=== PATIENT | male | born 1980 | race Hispanic/Latino ===

== ENCOUNTER 2017-04-04 11:41 | Emergency (ER) | payer MEDICAID, OTHER ==
[2017-04-04 11:42] VITALS: BMI 28.0
[2017-04-04 13:28] VITALS: TEMP 98.7
[2017-04-04 14:22] LABS: ADD MANUAL DIFF? NO
[2017-04-04 14:24] LABS: BASO # 0.02 K/mm3 (0.0-2.0); BASO % 0.1 % (0.0-3.0); EOS # 0.1 (0.0-0.7); EOS % 0.4 % (1.5-5.0); GRAN # 10.25 (1.4-6.5); GRAN % 75.5 % (50.0-68.0); HEMATOCRIT 42.5 % (42.0-52.0); LYMPH # 2.3 (1.2-3.4); LYMPH % 16.6 % (22.0-35.0); MEAN CELL VOLUME 89.7 fL (80.0-105.0); MEAN CORPUSCULAR HGB CONC 34.6 g/dl (31.0-37.0); MEAN PLATELET VOLUME 9.5 fl (7.0-11.0); MONO % 7.4 % (1.0-6.0); PLATELET COUNT 203 10^3/uL (120.0-450.0); RED CELL DISTRIBUTION WIDTH 12.9 % (11.5-14.5); WHITE BLOOD COUNT 13.6 10^3/ul (4.5-11.0)
[2017-04-04 14:37] LABS: ALB/GLOB RATIO 1.5 (1.1-1.8); ALKALINE PHOSPHATASE 52 U/L (38-133); ALT/SGPT 36 U/L (7-56); AST/SGOT 43 U/L (15-59); BILIRUBIN,TOTAL 0.8 mg/dL (0.2-1.3); BLOOD UREA NITROGEN 20 mg/dL (7-21); CALCIUM 9.1 mg/dL (8.4-10.5); CARBON DIOXIDE 26 mmol/L (21-33); CHLORIDE 106 mmol/L (98-107); GFR AFRICAN-AMERICAN > 60; GLUCOSE,RANDOM 83 mg/dL (70-110); SODIUM 141 mmol/L (132-148); TOTAL PROTEIN 6.6 g/dL (5.8-8.3)
[2017-04-04 14:47] LABS: TROPONIN I < 0.01 ng/mL
--- NOTE | 2017-04-04 15:03 | ED PDOC ---
Arrival/HPI <Ham Macias - Last Filed: 04/04/17 18:39> - General Historian: Patient <Radha Bryan A - Last Filed: 04/04/17 19:11> <Terence Anderson - Last Filed: 04/05/17 01:56> <Jovani Queen - Last Filed: 04/05/17 23:33> <Jeevan Myles - Last Filed: 04/06/17 20:44> - General Chief Complaint: Psychiatric Evaluation Time Seen by Provider: 04/04/17 11:59 - History of Present Illness Narrative History of Present Illness (Text): 04/04/17 15:00 37yo male bib [employer] for psych evaluation. Per [employer] pt was very agitated, loud and violent when they tried to arrest him for shoplifting this morning. PT was very loud, belligerent in ED. He reports that he used "dust". Screaming "I want to kill the officers". Denies any somatic or psychiatric complaint. (Radha Bryan A) Past Medical History - Provider Review Nursing Documentation Reviewed: Yes - Cardiac Hx Cardiac Disorders: No Hx Hypertension: No - Pulmonary Hx Tuberculosis: No - Neurological HX Cerebrovascular Accident: No Hx Seizures: No - HEENT Hx HEENT Disorder: No - Hematological/Oncological Hx Cancer: No - Integumentary Other/Comment: BRUISES ON LEFT FOREARM - Musculoskeletal/Rheumatological Hx Musculoskeletal Disorders: Yes - Genitourinary/Gynecological Hx Sexually Transmitted Diseases: No - Psychiatric Hx Psychophysiologic Disorder: Yes Hx Anxiety: Yes Hx Bipolar Disorder: Yes Hx Depression: Yes Hx Substance Use: Yes (unobtainable) <Radha Bryan A - Last Filed: 04/04/17 19:11> Family/Social History - Physician Review Nursing Documentation Reviewed: Yes Family/Social History: Unknown Family HX Smoking Status: Unknown If Ever Smoked Hx Alcohol Use: Yes (unobtainable) Hx Substance Use: Yes (unobtainable) <Radha Bryan - Last Filed: 04/04/17 19:11> Allergies/Home Meds <Ham Macias - Last Filed: 04/04/17 18:39> <Radha Byran A - Last Filed: 04/04/17 19:11> <Terence Anderson - Last Filed: 04/05/17 01:56> <Jovani Queen - Last Filed: 04/05/17 23:33> <Jeevan Myles - Last Filed: 04/06/17 20:44> Allergies/Adverse Reactions: Allergies No Known Allergies Allergy (Verified 04/04/17 11:53) Review of Systems - Physician Review All systems were reviewed & negative as marked: Yes - Review of Systems Constitutional: Normal Eyes: Normal ENT: Normal Respiratory: Normal Cardiovascular: Normal Gastrointestinal: Normal Genitourinary Male: Normal Musculoskeletal: Normal Skin: Normal Neurological: Normal Endocrine: Normal Hemo/Lymphatic: Normal Psychiatric: Other (Psych evaluation ) <Radha Bryan A - Last Filed: 04/04/17 19:11> Physical Exam Temperature: Afebrile Blood Pressure: Normal Pulse: Regular Respiratory Rate: Normal Appearance: Positive for: Well-Appearing, Non-Toxic, Comfortable Pain Distress: None Mental Status: Positive for: Alert and Oriented X 3 - Systems Exam Head: Present: Atraumatic, Normocephalic Pupils: Present: PERRL Extroacular Muscles: Present: EOMI Conjunctiva: Present: Normal Mouth: Present: Moist Mucous Membranes Neck: Present: Normal Range of Motion Respiratory/Chest: Present: Clear to Auscultation, Good Air Exchange. No: Respiratory Distress, Accessory Muscle Use Cardiovascular: Present: Regular Rate and Rhythm, Normal S1, S2. No: Murmurs Abdomen: Present: Normal Bowel Sounds. No: Tenderness, Distention, Peritoneal Signs Back: Present: Normal Inspection Upper Extremity: Present: Normal Inspection. No: Cyanosis, Edema Lower Extremity: Present: Normal Inspection. No: Edema Neurological: Present: GCS=15, CN II-XII Intact, Speech Normal Skin: Present: Warm, Dry, Normal Color. No: Rashes Psychiatric: Present: Alert, Oriented x 3, Normal Insight, Normal Concentration , Agitated, Other (Belligrent and loud) <Radha Bryan A - Last Filed: 04/04/17 19:11> Medical Decision Making <Ham Macias - Last Filed: 04/04/17 18:39> <RandiHappiness A - Last Filed: 04/04/17 19:11> - Transfer of Care Patient signed out to Dr:: Bernice <Terence Anderson - Last Filed: 04/05/17 01:56> <Jovani Queen - Last Filed: 04/05/17 23:33> <SharJeevan - Last Filed: 04/06/17 20:44> ED Course and Treatment: 04/04/17 14:30 Patient screaming, aggressive, threatening to staff verbally and physically aggressive despite attempts to verbally assess and manage patient he is potential harm to self and others in agitated state, preventing adequate initial screening exam for aggressiveness and agitation. Geodon ordered for sedation. 04/04/17 19:00 CXR and re-evaluation pending. Case to be endorsed to Dr. Queen for follow-up of re-exam and disposition. (Ham Macias) 04/04/17 17:29 PT presented to EDfor stated history. He was restrained physically and medically because he was belligernet, loud and appeared harmful to himself and ED staffs. Lab was reviewed and unremarkable Urine drug tox - PCP and cocaine noted. EKG NSR @71bpm He was medically cleared for psychiatric evaluation He was seen in ED by PES selvin Caraballo who states that pt will be screened by [facility]. 04/04/17 19:12 PT remain hemodynamically stable in ED. Sleeping comfortably in ED. He is pending [facility] screening. Case was endorsed to HILARY Anderson PAC to f/u and dispo. (Radha Bryan) 04/04/17 22:00 -Pt. is here for the psychiatric evaluation due to the homicidal/suicidal ideation, very uncooperative. -Pt. was medically clear by the previous providers. -Case sign out to me by previous JORGE Bryan, pending for the [facility] -Josette Caraballo evaluated the patient, stated that the patient is still under the influence and [facility] will come to screen the patient once he is less agitated. 04/05/17 00:00 -Pt. is sleeping in his room, non-agitated, refused to speak to me or answer any of my questions, pending for the [facility]. 04/05/17 02:00 -Pt. is agitated, cursing, screaming, screen by the [facility] amador, suggest ativan/ haldol, ordered. -Case discussed and sign out to the current ER attending Dr. Queen for evaluation. (Terence Anderson) 04/05/17 06:00 Pt. was evaluated by [facility] screener.Pending [facility] transfer. 04/05/17 07:00 Pt. resting comfortably.Endorsed to .Awaiting bed placement /transfer to [facility]. (Jovani uQeen) 04/05/17 07:00 Case endorsed to me by Dr. Queen, pending placement and transfer to [facility]. (Jeevan Myles) - Lab Interpretations Lab Results: 04/04/17 14:20 04/04/17 14:20 Lab Results 04/04/17 16:15: Urine Opiates Screen Negative, Urine Methadone Screen Negative, Ur Barbiturates Screen Negative, Ur Phencyclidine Scrn Positive H, Ur Amphetamines Screen Negative, U Benzodiazepines Scrn Negative, U Oth Cocaine Metabols Positive H, U Cannabinoids Screen Negative 04/04/17 16:15: Urine Color Yellow, Urine Appearance Clear, Urine pH 6.0, Ur Specific [place] 1.020, Urine Protein Trace H, Urine Glucose (UA) Negative, Urine Ketones Negative, Urine Blood Negative, Urine Nitrate Negative, Urine Bilirubin Negative, Urine Urobilinogen 0.2, Ur Leukocyte Esterase Negative, Urine RBC Negative, Urine WBC 1 - 3, Ur Epithelial Cells None, Amorphous Sediment Few, Urine Bacteria Few, Fine Granular Casts 0 - 2 04/04/17 14:20: Alcohol, Quantitative < 10 04/04/17 14:20: Salicylates < 1 L, Acetaminophen < 10.0 L 04/04/17 14:20: Sodium 141, Potassium 4.0, Chloride 106, Carbon Dioxide 26, Anion Gap 13, BUN 20, Creatinine 1.0, Est GFR ( Amer) > 60, Est GFR (Non- Af Amer) > 60, Random Glucose 83, Calcium 9.1, Total Bilirubin 0.8, AST 43, ALT 36, Alkaline Phosphatase 52, Lactate Dehydrogenase 702 H, Total Creatine Kinase 826 H, CK-MB (CK-2) 8.2 H, CK-MB (CK-2) % 1.0 L, Troponin I < 0.01, Total Protein 6.6, Albumin 4.0, Globulin 2.7, Albumin/Globulin Ratio 1.5 04/04/17 14:20: WBC 13.6 H, RBC 4.74, Hgb 14.7, Hct 42.5, MCV 89.7, MCH 31.0, MCHC 34.6, RDW 12.9, Plt Count 203, MPV 9.5, Gran % 75.5 H, Lymph % (Auto) 16.6 L, [place] % (Auto) 7.4 H, Eos % (Auto) 0.4 L, Baso % (Auto) 0.1, Gran # 10.25 H, Lymph # 2.3, Hamilton # 1.0 H, Eos # 0.1, Baso # 0.02 - Medication Orders Current Medication Orders: Discontinued Medications Haloperidol Lactate (Haldol) 5 mg IM STAT STA PRN Reason: Protocol Stop: 04/05/17 01:56 Last Admin: 04/05/17 02:05 Dose: 5 mg Haloperidol Lactate (Haldol) Confirm Administered Dose 5 mg .ROUTE .STK-MED ONE Stop: 04/05/17 01:59 Last Admin: 04/05/17 02:06 Dose: Lorazepam (Ativan) 2 mg IM ONCE ONE PRN Reason: Protocol Stop: 04/05/17 01:56 Last Admin: 04/05/17 02:05 Dose: 2 mg Lorazepam (Ativan) Confirm Administered Dose 2 mg .ROUTE .STK-MED ONE Stop: 04/05/17 01:59 Last Admin: 04/05/17 02:05 Dose: Lorazepam (Ativan) 2 mg IM ONCE ONE Stop: 04/05/17 23:57 Last Admin: 04/05/17 23:58 Dose: 2 mg Ziprasidone (Geodon Inj) 20 mg IM STAT STA Stop: 04/04/17 12:35 Last Admin: 04/04/17 13:33 Dose: 20 mg - PA / LEGUILLON DEBEADER / Resident Statement MD/DO has reviewed & agrees with the documentation as recorded. <Terence Anderson - Last Filed: 04/05/17 01:56> Disposition/Present on Arrival <Ham Macias - Last Filed: 04/04/17 18:39> - Present on Arrival History of DVT/PE: No History of Uncontrolled Diabetes: No Urinary Catheter: No History of Decub. Ulcer: No History Surgical Site Infection Following: None <Radha Bryan - Last Filed: 04/04/17 19:11> - Present on Arrival Any Indicators Present on Arrival: No History of DVT/PE: No History of Uncontrolled Diabetes: No Urinary Catheter: No History of Decub. Ulcer: No - Disposition Disposition Time: 00:29 <Terence Anderson - Last Filed: 04/05/17 01:56> - Present on Arrival Any Indicators Present on Arrival: No - Disposition Have Diagnosis and Disposition been Completed?: Yes Disposition Time: 23:33 <Jovani Queen - Last Filed: 04/05/17 23:33> <Jeevan Myles - Last Filed: 04/06/17 20:44> - Disposition Diagnosis: Polysubstance abuse, Agitation, Bipolar 1 disorder Disposition: Trans to Other Acute Care Hosp Condition: STABLE Additional Instructions: Patient is medically cleared for transfer to [facility] accompanied by [facility], [place], operated by [facility] ambulance Referrals: PCP,NO [Primary Care Provider] - Follow up with primary
[2017-04-04 16:33] LABS: URINE APPEARANCE CLEAR (CLEAR); URINE BILIRUBIN NEGATIVE (NEGATIVE); URINE BLOOD NEGATIVE (NEGATIVE); URINE COLOR YELLOW (YELLOW); URINE GLUCOSE (UA) NEGATIVE (NEGATIVE); URINE KETONE NEGATIVE (NEGATIVE); URINE LEUKOCYTE ESTERASE NEGATIVE Leu/uL (NEGATIVE); URINE PROTEIN TRACE mg/dL (<30 mg/dL); URINE UROBILINOGEN 0.2 E.U./dL (<1 E.U./dL)
[2017-04-04 16:40] LABS: URINE RBC NEGATIVE /hpf (0-2)
[2017-04-04 16:41] LABS: URINE AMORPHOUS SEDIMENT FEW; URINE BACTERIA FEW (NEG)
--- NOTE | 2017-04-04 22:06 | CARD ---
APPROVED REPORT EKG Measurement Heart [id number] <Conclusion> Normal sinus rhythm Normal ECG
[2017-04-05 18:54] VITALS: BP 123/67; PULSE 68; RESP 16; O2SAT 96
== END 2017-04-06 00:07 | disposition short-term general hospital (02) ==
LOC: ED 11:41
DX: F19.10 Other psychoactive substance abuse, uncomplicated (principal); R45.1 Restlessness and agitation; F31.9 Bipolar disorder, unspecified
CPT/HCPCS: 80053; 80320; 80324; 80329; 80345; 80346; 80349; 80353; 80358; 80361; 81001; 82550; 82553; 83615; 83992; 84484; 85025; 93005; 96372; 99285; J1630; J2060; J3486